=== PATIENT | female | born 1955 | race Hispanic/Latino ===

== ENCOUNTER 2021-11-05 11:21 | Emergency (ER) | payer SELFPAY ==
--- OUTSIDE RECORDS SUMMARY | 2021-11-05 11:23 | XMS REPORT | Continuity of Care Document ---
:1955 Author Organization [facility] t Address [address] [place] [address] Care Team Providers Name Role Phone PCP, PATIENT DOES NOT HAVE A Primary Care Physician Unavaila ble RADIOLOGY Attending Clinician Unavailable Radiology Attending Clinician Unavailable Hi ALEMAN Attending Clinician HI Attending Clinician Unavailable Doctor Unassigned, Name Attending Clinician Unavailable Problems Condition Condition Condition Status Onset Resolution Last Treating Co mments Source Name Details Category Date Date Treatment Clinician Date No known No known Disease Unive rs active active ity of problems problems [facility] Allergies, Adverse Reactions, Alerts Allergy Allergy Status Severity Reaction(s) Onset Inactive Treating Comm ents Source Name Type Date Date Clinician NO KNOWN Drug Active Univers ALLERGIE Class ity of S [facility] Social History Social Habit Start Date Stop Date Quantity Comments Source Exposure to Not sure [facility] SARS-CoV-2 (event) [facility] History of tobacco Cigarette Smoker University of use [facility] Cigarettes smoked 2020-12-28 2020-12-28 Univers ity of current (pack per 00:00:00 00:00:00 ) - Reported Branch Cigarette 2020-12-28 2020-12-28 University of pack-years 00:00:00 00:00:00 [facility] Tobacco use and 2020-12-28 2020-12-28 Never used Universit y of exposure 00:00:00 00:00:00 [facility] Alcohol intake 2020-12-28 2020-12-28 Ex-drinker [facility] 00:00:00 00:00:00 (finding) [facility] Sex Ass[birth year] Universit y of 00:00:00 00:00:00 [facility] Smoking Status Start Date Stop Date Source Unknown if ever smoked [facility] Current every day smoker 2020-12-28 00:00:00 [facility] Ordered Filled Start Stop Current Ordering Indication Dosage Frequency Signature Comments Components Source Medication Medication Date Date Medication? Clinician (SIG) Name Name No known No Univers medications 3-08 ity of 15:50: [address] No known No [facility] No known No [facility] Immunizations Ordered Filled Immunization Date Status Comments Sourc e Immunization Name Name SARS-COV-2 COVID-19 2021-02-20 Completed Unive rsity of PFIZER VACCINE 00:00:00 [facility] SARS-COV-2 COVID-19 2021-01-30 Completed Unive rsity of PFIZER VACCINE 00:00:00 [facility] Vital Signs Vital Name Observation Time Observation Value Comments Source Systolic blood 2020-12-24 21:43:00 142 mm[Hg] Univer sity of pressure [facility] Diastolic blood 2020-12-24 21:43:00 87 mm[Hg] Unive rsity of pressure [facility] Heart rate 2020-12-24 21:43:00 117 /min [facility] Body temperature 2020-12-24 21:43:00 36.5 [facility] Respiratory rate 2020-12-24 21:43:00 18 /min [facility] Body height 2020-12-24 21:43:00 165.1 cm [facility] Body weight 2020-12-24 21:43:00 71.668 kg [facility] BMI 2020-12-24 21:43:00 26.29 kg/m2 [facility] Procedures Procedure Date / Time Performed Performing Clinician Cyn e US ABDOMEN LIMITED 2021-11-01 14:30:53 Ginger Gomez [facility] ASSIGNMENT OF BENEFITS 2020-12-24 21:22:37 Doctor Unassigned, No [facility] Encounters Start End Encounter Admission Attending Care Care Encounter Source Date/Time Date/Time Type Type Clinicians Facility Department ID 2021-11-01 2021-11-01 Outpatient R RADIOLOGY [facility] [id number] Univers 08:13:13 23:59:00 ity [facility] 2021-11-01 2021-11-01 Hospital Radiology [facility] [id number] Univers 08:00:00 23:59:00 Encounter MATY [id number] [id number] [id number] [facility] [address] Branch 2021-11-01 2021-11-01 Outpatient R RADIOLOGY [facility] [id number] Univers 08:00:00 08:00:00 [id number] ity [facility] 2021-02-20 2021-02-20 Outpatient [facility] [id number] Univers 09:25:00 09:25:00 ity [facility] 2021-01-30 2021-01-30 Outpatient [facility] [id number] Univers 09:10:00 09:10:00 ity [facility] 2020-12-24 2020-12-24 Office [facility] [id number] Univers 15:24:13 16:32:40 Visit Lexisdiamond [place] [id number] [id number] [facility] [id number] Ny dical [address] 2020-12-24 2020-12-24 Outpatient R [facility] [id number] Univers 15:30:00 15:30:00 LEXIS francis [facility] 2020-12-24 2020-12-24 Orders Doctor BERNAL [id number] Univers 00:00:00 00:00:00 Only Unassigned, MATTHEW [id number] ity of [place] [facility] [id number] [place] [phone] [facility] [address] Results This patient has no known results.
[2021-11-05 12:48] LABS: Absolute Lymphocytes (CBC) 2.2 K/uL (0.7-4.9); Hematocrit 53.6 % (36.0-45.0); Lymphocytes % 23.3 % (15.3-44.8); MPV 12.9 fL (7.6-11.3)
[2021-11-05 13:05] LABS: ALT/SGPT 16 U/L (12-78); AST/SGOT 21 U/L (15-37); Albumin 1.4 g/dL (3.4-5.0); Alkaline Phosphatase 94 U/L (45-117); BUN Blood Urea Nitrogen 8 mg/dL (7-18); Bicarbonate 33 mmol/L (21-32); Bilirubin Direct < 0.1 mg/dL (0-0.2); Bilirubin Total 0.3 mg/dL (0.2-1.0); Glucose Level 109 mg/dL (74-106); Lipase 150 U/L (73-393); Potassium 3.9 mmol/L (3.5-5.1); Protein, Total 5.6 g/dL (6.4-8.2); Sodium Level 138 mmol/L (136-145)
[2021-11-05] MEDS ORDERED: ONDANSETRON 4 MG/2 ML VIAL ONE (13:23)
[2021-11-05] MEDS ORDERED: KETOROLAC 30 MG/ML INJ ONE (13:24)
--- NOTE | 2021-11-05 13:48 | RAD REPORT ---
[facility] 1:37 pm CLINICAL HISTORY: Right flank pain COMPARISON: No comparisons TECHNIQUE: CT of the abdomen and pelvis was performed. All CT scans are performed using dose optimization technique as appropriate and may include automated exposure control or mA/KV adjustment according to patient size. FINDINGS: Lower chest: No acute abnormality. Liver: No acute abnormality or suspicious lesions. Biliary: No biliary ductal dilatation. Stomach: No significant focal abnormality. Duodenum: No significant focal abnormality. Pancreas: No significant abnormality. Spleen: Low-density splenic lesion which is statistically benign. Adrenal: No suspicious lesions. Kidney/ureter: No hydronephrosis. No renal calculi. Retroperitoneum: No retroperitoneal adenopathy. Vascular: Atherosclerosis. Bowel: Diverticulosis. No evidence of acute diverticulitis.. Appendectomy. Peritoneum: No ascites or free air. Bladder: Grossly unremarkable. Reproductive: No adnexal masses. Bones: No acute fracture. Other: n/a IMPRESSION: No acute intra-abdominal or pelvic finding. No urinary tract calculi. Prior appendectomy .
[2021-11-05 14:33] LABS: Urine Blood 2+ (Negative); Urine Glucose Negative (Negative); Urine Protein 3+ (Negative); Urine pH 5.5 (5.0-7.0)
--- NOTE | 2021-11-05 15:15 | EDPHYS ---
Physician Documentation [facility] Name: Anahi Vela Age: 66 yrs Sex: Female : 1955 Arrival Date: 11/05/2021 Time: 11:23 Bed 7 Private MD: ED Physician Anant Portillo HPI: 11/05 18:08 This 66 yrs old Female presents to ER via Ambulatory with complaints of kdr Abdominal Pain, Vomiting. 18:08 The patient has been having right flank pain that radiates to the right upper quadrant kdr with some nausea but no vomiting for the past 2 to 3 weeks. It actually has been ongoing for several years since she had a previous episode of shingles in the same distribution area. She been evaluated several times for this problem without a specific diagnosis being rendered. She has no other associated signs or symptoms of otherwise been her usual state of health. On presentation she does not appear to be toxic or critically ill in any way. Onset: The symptoms/episode began/occurred There was an acute phase of ramp-up of the discomfort and pain the past 3 weeks but prior to that the pain has been ongoing for months if not several years. Severity of symptoms: At their worst the symptoms were mild moderate just prior to arrival, in the emergency department the symptoms are unchanged. Historical: - Allergies: 11:55 No Known Allergies; vg1 - Home Meds: 11:55 Chlorthalidone Oral [Active]; Methocarbamol Oral [Active]; losartan oral [Active]; vg1 Albuterol Inhl [Active]; - PMHx: 11:55 Hypertensive disorder; vg1 - PSHx: 11:55 section; Appendectomy; vg1 - Immunization history:: Client reports receiving the 2nd dose of the Covid vaccine. - Social history:: Smoking status: Patient reports the use of cigarette tobacco products, smokes one pack cigarettes per day. ROS: 18:10 Constitutional: Negative for fever, chills, and weight loss, Eyes: Negative for injury, kdr pain, redness, and discharge, ENT: Negative for injury, pain, and discharge, Neck: Negative for injury, pain, and swelling, Cardiovascular: Negative for chest pain, palpitations, and edema, Respiratory: Negative for shortness of breath, cough, wheezing, and pleuritic chest pain, Back: Negative for injury and pain, : Negative for injury, bleeding, discharge, and swelling, MS/Extremity: Negative for injury and deformity, Skin: Negative for injury, rash, and discoloration, Neuro: Negative for headache, weakness, numbness, tingling, and seizure activity. Psych: Negative for depression, anxiety, suicide ideation, homicidal ideation, and hallucinations, Allergy/Immunology: Negative for hives, rash, and allergies, Endocrine: Negative for neck swelling, polydipsia, polyuria, polyphagia, and marked weight changes, Hematologic/Lymphatic: Negative for swollen nodes, abnormal bleeding, and unusual bruising. 18:10 Abdomen/GI: Positive for abdominal pain, nausea, Negative for vomiting, diarrhea, constipation, abdominal cramps, abdominal distension, black/tarry stool, rectal pain, rectal bleeding. Exam: 18:10 Constitutional: This is a well developed, well nourished patient who is awake, alert, kdr and in no acute distress. Head/Face: Normocephalic, atraumatic. Eyes: Pupils equal round and reactive to light, extra-ocular motions intact. Lids and lashes normal. Conjunctiva and sclera are non-icteric and not injected. Cornea within normal limits. Periorbital areas with no swelling, redness, or edema. Neck: Trachea midline, no thyromegaly or masses palpated, and no cervical lymphadenopathy. Supple, full range of motion without nuchal rigidity, or vertebral point tenderness. No Meningismus. Chest/axilla: Normal chest wall appearance and motion. Nontender with no deformity. No lesions are appreciated. Cardiovascular: Regular rate and rhythm with a normal S1 and S2. No gallops, murmurs, or rubs. Normal PMI, no JVD. No pulse deficits. Respiratory: Lungs have equal breath sounds bilaterally, clear to auscultation and percussion. No rales, rhonchi or wheezes noted. No increased work of breathing, no retractions or nasal flaring. Abdomen/GI: Soft, non-tender, with normal bowel sounds. No distension or tympany. No guarding or rebound. No evidence of tenderness throughout. Back: No spinal tenderness. No costovertebral tenderness. Full range of motion. Skin: Warm, dry with normal turgor. Normal color with no rashes, no lesions, and no evidence of cellulitis. MS/ Extremity: Pulses equal, no cyanosis. Neurovascular intact. Full, normal range of motion. Neuro: Awake and alert, GCS 15, oriented to person, place, time, and situation. Cranial nerves II-XII grossly intact. Motor strength 5/5 in all extremities. Sensory grossly intact. Cerebellar exam normal. Normal gait. Psych: Awake, alert, with orientation to person, place and time. Behavior, mood, and affect are within normal limits. Vital Signs: 11:53 BP 162 / 89; Pulse 116; Resp 17; Temp 98.8; Pulse Ox 95% ; Weight 70.76 kg; Height 5 vg1 ft. 5 in. (165.10 cm); Pain 9/10; 13:30 BP 138 / 97; Pulse 98; Resp 17; Pulse Ox 95% on R/A; Pain 9/10; tw2 14:36 BP 130 / 76; Pulse 97; Resp 17; Pulse Ox 97% on R/A; tw2 11:53 Body Mass Index 25.96 (70.76 kg, 165.10 cm) vg1 MDM: 15:14 Patient medically screened. kdr 18:10 Data reviewed: vital signs, nurses notes, lab test result(s), radiologic studies. kdr Counseling: I had a detailed discussion with the patient and/or guardian regarding: the historical points, exam findings, and any diagnostic results supporting the discharge/admit diagnosis, lab results, radiology results, the need for outpatient follow up, Patient did not appear toxic or acutely ill at any time while in the ED. She stated that her initial pain was a 9 but after interventions given it was a 7. Her vital signs were stable without any supporting evidence for a pain level of 7. She was discharged in stable condition and happy with the care provided the plan for discharge and follow-up. Response to treatment: the patient's symptoms have mildly improved after treatment. 11/05 12:22 Order name: Basic Metabolic Panel; Complete Time: 14:30 kdr 11/05 12:22 Order name: CBC with Diff kdr 11/05 12:22 Order name: Hepatic Function; Complete Time: 14:30 kdr 11/05 12:22 Order name: Lipase; Complete Time: 14:30 kdr 11/05 13:12 Order name: CT Stone Protocol; Complete Time: 14:30 kdr 11/05 14:33 Order name: Urine Dipstick-Ancillary; Complete Time: 15:04 EDCT 11/05 12:22 Order name: IV Saline Lock; Complete Time: 12:33 kdr 11/05 12:22 Order name: Labs collected and sent; Complete Time: 12:33 kdr 11/05 14:35 Order name: Urine Dipstick-Ancillary (obtain specimen); Complete Time: 14:35 tw2 Administered Medications: 13:30 Drug: Zofran (Ondansetron) 4 mg Route: IVP; Site: right antecubital; tw2 14:35 Follow up: Response: No adverse reaction; Nausea is decreased tw2 13:32 Drug: Ketorolac 15 mg Route: IVP; Site: right antecubital; tw2 14:35 Follow up: Response: No adverse reaction; Pain is decreased tw2 Disposition Summary: 11/05/21 15:14 Discharge Ordered Location: Home kdr Problem: an ongoing problem kdr Symptoms: have improved kdr Condition: Stable kdr Diagnosis - Right flank pain kdr Followup: kdr - With: Ginger Gomez DO - When: 2 - 3 days - Reason: If symptoms return, Further diagnostic work-up, Recheck today's complaints, Continuance of care, Re-evaluation by your physician Discharge Instructions: - Discharge Summary Sheet kdr - Flank Pain, Adult, [id number] kdr Forms: - Medication Reconciliation Form kdr - Thank You Letter kdr - Prescription Opioid Use kdr Prescriptions: - Neurontin 300 mg Oral Capsule - take 1 capsule by ORAL route At bedtime; 20 capsule; Refills: 0, Product kdr Selection Permitted - Tramadol 50 mg Oral Tablet - take 1 tablet by ORAL route every 8 hours as needed; 16 tablet; Refills: 0, kdr Product Selection Permitted - Medrol (Danilo) 4 mg Oral Tablets, Dose Pack - take 1 tablet by ORAL route as directed - follow package instructions; 1 kdr packet; Refills: 0, Product Selection Permitted Signatures: Dispatcher [employer] Anant Myrick MD MD kdr Nancy Hamilton RN RN tw2 Lizeth Wilkins RN RN vg1 Corrections: (The following items were deleted from the chart) 11:59 11:55 Social history: Smoking status: Patient denies any tobacco usage or history of. vg1 vg1
--- NOTE | 2021-11-05 15:15 | ER ---
Nurse's Notes [facility] Name: Anahi Vela Age: 66 yrs Sex: Female : 1955 Arrival Date: 11/05/2021 Time: 11:23 Bed 7 Private MD: Diagnosis: Right flank pain Presentation: 11/05 11:53 Chief complaint: Patient states: Right flank pain that radiates to RUQ with NV for vg1 about 2-3 weeks. Denies burning upon urination and states urine is 'dark at times'. Coronavirus screen: Vaccine status: Patient reports receiving the 2nd dose of the covid vaccine. Client denies travel out of the [place] in the last 14 days. Ebola Screen: Patient negative for fever greater than or equal to 101.5 degrees Fahrenheit, and additional compatible Ebola Virus Disease symptoms. Initial Sepsis Screen: Does the patient meet any 2 criteria? No. Patient's initial sepsis screen is negative. Does the patient have a suspected source of infection? No. Patient's initial sepsis screen is negative. Risk Assessment: Do you want to hurt yourself or someone else? Patient reports no desire to harm self or others. Onset of symptoms was October 22, 2022. 11:53 Method Of Arrival: Ambulatory vg1 11:53 Acuity: KERI 3 vg1 Triage Assessment: 11:55 General: Appears in no apparent distress. uncomfortable, Behavior is calm, cooperative. vg1 Pain: Complains of pain in right upper quadrant and right flank Pain. GI: Reports nausea. Historical: - Allergies: 11:55 No Known Allergies; vg1 - Home Meds: 11:55 Chlorthalidone Oral [Active]; Methocarbamol Oral [Active]; losartan oral [Active]; vg1 Albuterol Inhl [Active]; - PMHx: 11:55 Hypertensive disorder; vg1 - PSHx: 11:55 section; Appendectomy; vg1 - Immunization history:: Client reports receiving the 2nd dose of the Covid vaccine. - Social history:: Smoking status: Patient reports the use of cigarette tobacco products, smokes one pack cigarettes per day. Screenin:45 Abuse screen: Denies threats or abuse. Denies injuries from another. Nutritional jl7 screening: No deficits noted. Tuberculosis screening: No symptoms or risk factors identified. Fall Risk IV access (20 points). Total Call Fall Scale indicates No Risk (0-24 pts). Assessment: 13:24 Reassessment: pt in CT at this time, not available for medication or vs. tw2 13:30 Reassessment: Patient appears in no apparent distress at this time. Patient and/or tw2 family updated on plan of care and expected duration. Pain level reassessed. Patient is alert, oriented x 3, equal unlabored respirations, skin warm/dry/pink. pt back from CT at this time, states pain "9/10". medicated as per order. pt requesting to ambulate to restroom at this time. urine specimen cup provided for pt. pts daughter walking with pt to restroom. 13:41 General: Appears in no apparent distress. uncomfortable, well groomed, Behavior is tw2 calm, cooperative, appropriate for age. Pain: Complains of pain in abdomen. Respiratory: Airway is patent Respiratory effort is even, unlabored, Respiratory pattern is regular, symmetrical. GI: n/a na. Musculoskeletal: Range of motion: intact in all extremities. 14:36 Reassessment: Patient appears in no apparent distress at this time. Patient and/or tw2 family updated on plan of care and expected duration. Pain level reassessed. Patient is alert, oriented x 3, equal unlabored respirations, skin warm/dry/pink. Patient states feeling better. Patient states symptoms have improved. 15:40 Reassessment: Patient appears in no apparent distress at this time. Patient and/or tw2 family updated on plan of care and expected duration. Pain level reassessed. Patient is alert, oriented x 3, equal unlabored respirations, skin warm/dry/pink. Vital Signs: 11:53 BP 162 / 89; Pulse 116; Resp 17; Temp 98.8; Pulse Ox 95% ; Weight 70.76 kg; Height 5 vg1 ft. 5 in. (165.10 cm); Pain 9/10; 13:30 BP 138 / 97; Pulse 98; Resp 17; Pulse Ox 95% on R/A; Pain 9/10; tw2 14:36 BP 130 / 76; Pulse 97; Resp 17; Pulse Ox 97% on R/A; tw2 11:53 Body Mass Index 25.96 (70.76 kg, 165.10 cm) vg1 ED Course: 11:23 Patient arrived in ED. mr 11:33 Anant Portillo MD is Attending Physician. kdr 11:55 Triage completed. vg1 11:55 Arm band placed on. vg1 12:33 Initial lab(s) drawn, by me, sent to lab. Inserted saline lock: 20 gauge in right jl7 antecubital area, using aseptic technique. Blood collected. 12:45 Patient has correct armband on for positive identification. Bed in low position. Call jl7 light in reach. Side rails up X 1. Pulse ox on. NIBP on. 13:20 Nancy Hamilton, RN is Primary Nurse. tw2 13:37 CT Stone Protocol In Process Unspecified. EDMS 15:14 Ginger Gomez DO is Referral Physician. kdr 15:39 No provider procedures requiring assistance completed. IV discontinued, intact, tw2 bleeding controlled, No redness/swelling at site. Pressure dressing applied. Administered Medications: 13:30 Drug: Zofran (Ondansetron) 4 mg Route: IVP; Site: right antecubital; tw2 14:35 Follow up: Response: No adverse reaction; Nausea is decreased tw2 13:32 Drug: Ketorolac 15 mg Route: IVP; Site: right antecubital; tw2 14:35 Follow up: Response: No adverse reaction; Pain is decreased tw2 Outcome: 15:14 Discharge ordered by . kdr 15:39 Discharged to home ambulatory, with family. tw2 15:39 Condition: stable 15:39 Discharge instructions given to patient, family, Instructed on discharge instructions, follow up and referral plans. no drinking with medication, no driving heavy equipment, medication usage, Demonstrated understanding of instructions, follow-up care, medications, Prescriptions given X 3. 15:40 Patient left the ED. tw2 Signatures: Dispatcher [employer] EDIA Anant Portillo MD MD kdr Hannah Ledesma mr Nancy Hamilton, RN RN tw2 See Noe RN RN jl7 Lizeth Wilkins RN RN vg1 Corrections: (The following items were deleted from the chart) 11:59 11:55 Social history: Smoking status: Patient denies any tobacco usage or history of. vg1 vg1 13:42 13:30 Reassessment: Patient appears in no apparent distress at this time. Patient tw2 and/or family updated on plan of care and expected duration. Pain level reassessed. Patient is alert, oriented x 3, equal unlabored respirations, skin warm/dry/pink. pt back from CT at this time, states pain "9/10". medicated as per order. pt requesting to ambulate to restroom at this time. urine specimen cup provided for pt. pts daughter walking with pt to restroom tw2
[2021-11-05 15:52] VITALS: TEMP 98.8
[2021-11-05 15:55] VITALS: BP 130/76; O2SAT 97
[2021-11-05 16:29] LABS: Platelet Estimate DECR; White Blood Cell Scan OK (OK)
[2021-11-05 16:30] LABS: Blood Morphology Comment NOT SEEN (NOT SEEN)
== END 2021-11-05 15:40 | disposition home or self-care (01) ==
LOC: ER 11:21
DX: R10.9 Unspecified abdominal pain (principal); I10 Essential (primary) hypertension
CPT/HCPCS: 36415; 74176; 76377; 80048; 80076; 81003; 83690; 85025; 96374; 96375; 99284; J2405